=== PATIENT | male | born 1995 | race American Indian/Alaskan Native ===

== ENCOUNTER 2016-08-24 00:49 | Observation (INO) | payer MEDICAID ==
[2016-08-24] MEDS ORDERED: Sodium Chloride 0.9% 1,000 ML IV STA (01:02)
--- NOTE | 2016-08-24 01:29 | ED PDOC ---
HPI: Psych/Substance Abuse Time Seen by Provider: 08/24/16 00:59 Chief Complaint (Nursing): Alcohol Ingestion Chief Complaint (Provider): ETOH ED Caveat: Intoxicated History Per: Patient History/Exam Limitations: intoxication (Alcohol Intoxication) Onset/Duration Of Symptoms: Hrs Current Symptoms Are (Timing): Still Present Modifying Factor(s): Alcohol Additional Complaint(s): Nara Thakkar, a 20 year old male, was found in [address] and is brought into the ED by ambulance for public intoxication. History is limited due to patient's intoxicated state. Patient is observed to have unsteady gait and is vomiting in ED. Past Medical History Reviewed: Historical Data, Nursing Documentation, Vital Signs Vital Signs: Last Vital Signs Temp 97.7 F 08/24/16 00:57 Pulse 107 H 08/24/16 00:57 Resp 18 08/24/16 00:57 BP 139/78 08/24/16 00:57 Pulse Ox 97 08/24/16 00:57 - Medical History PMH: No Chronic Diseases - Family History Family History: States: Unknown Family Hx - Allergies Allergies/Adverse Reactions: Allergies Allergy/AdvReac Type Severity Reaction Status Date / Time No Known Allergies Allergy Verified 08/24/16 00:57 Review of Systems Review Of Systems: ROS cannot be obtained secondary to pt's inabilty to answer questions. (Unable history to obtain due to patient's state of intoxication.) Physical Exam - Reviewed Nursing Documentation Reviewed: Yes Vital Signs Reviewed: Yes - Physical Exam Appears: Positive for: Non-toxic, No Acute Distress Head Exam: Positive for: ATRAUMATIC, NORMOCEPHALIC Eye Exam: Positive for: Normal appearance, EOMI, PERRL Cardiovascular/Chest: Positive for: Regular Rate, Rhythm, Chest Non Tender. Negative for: Tachycardia Respiratory: Positive for: Normal Breath Sounds. Negative for: Wheezing, Respiratory Distress Gastrointestinal/Abdominal: Positive for: Normal Exam, Bowel Sounds, Soft. Negative for: Tenderness, Guarding, Rebound Neurologic/Psych: Positive for: Mood/Affect (Not alert but arousable;Obtunded). Negative for: Alert, Oriented - Laboratory Results Result Diagrams: 08/24/16 01:24 08/24/16 01:24 - ECG O2 Sat by Pulse Oximetry: 97 (RA) Pulse Ox Interpretation: Normal Medical Decision Making Medical Decision Makin Initial Impression: 20 year old male presenting with alcohol intoxication Initial Plan: * Alcohol serum * Comp Metabolic Panel * CBC * NS 1000ml IV 1000mls/hr * Zofran mg IV * Admit [id number] * Reevaluation \ Scribe Attestation Documented by Sally Isaac acting as a scribe for Suzanne Booker MD. Provider Attestation All medical record entries made by the Scribe were at my direction and personally dictated by me. I have reviewed the chart and agree that the record accurately reflects my personal performance of the history, physical exam, medical decision making, and the department course for this patient. I have also personally directed, reviewed, and agree with the discharge instructions and disposition. ED OBSERVATION Date of observation admission: 08/24/16 Time of observation admission: 01:24 - Observation admission statement Patient is being placed in observation because:: Pending sobriety. - Progress Note Progress Note: 08/24/16 03:12 Patient's condition is unchanged but patient is stable. 05:15 Patient has mildly improved and at this time is stable and sleeping. 6.50 Alert and awake. Ambulatory with steady gait. Scribe Attestation Documented by Sally Isaac acting as a scribe for Suzanne Booker MD. Provider Attestation All medical record entries made by the Scribe were at my direction and personally dictated by me. I have reviewed the chart and agree that the record accurately reflects my personal performance of the history, physical exam, medical decision making, and the department course for this patient. I have also personally directed, reviewed, and agree with the discharge instructions and disposition. Disposition - Clinical Impression Clinical Impression: Alcohol abuse with intoxication - Patient ED Disposition Is Patient to be Admitted: No Doctor Will See Patient In The: Office Counseled Patient/Family Regarding: Studies Performed, Diagnosis, Need For Followup - Disposition Disposition: Routine/Home Disposition Time: 06:52 Condition: GOOD
[2016-08-24 01:39] LABS: BASO % 0.6 % (0.0-2.0); EOS # 0.1 K/uL (0.0-0.7); EOS % 0.8 % (0.0-4.0); HEMATOCRIT 43.4 % (35.0-51.0); LYMPH # 5.2 K/uL (1.0-4.3); LYMPH % 61.1 % (20.0-40.0); MEAN CELL VOLUME 89.1 fl (80.0-94.0); MEAN CORPUSCULAR HEMOGLOBIN 29.8 pg (27.0-31.0); MEAN CORPUSCULAR HGB CONC 33.4 g/dL (33.0-37.0); MEAN PLATELET VOLUME 7.9 fl (7.2-11.7); MONO # 0.5 K/uL (0.0-0.8); MONO % 5.9 % (0.0-10.0); NEUT # 2.7 K/uL (1.8-7.0); NEUT % 31.6 % (50.0-75.0); NRBC % 0.2 % (0.0-0.0); PLATELET COUNT 222 K/uL (130-400); WHITE BLOOD COUNT 8.5 K/uL (4.8-10.8)
[2016-08-24 01:47] LABS: CHLORIDE 105 mmol/L (98-107)
[2016-08-24 01:48] LABS: POTASSIUM 3.6 MMOL/L (3.6-5.0); SODIUM 143 mmol/l (132-148)
[2016-08-24 01:50] LABS: ALB/GLOB RATIO 1.4 (1.0-2.1); ALKALINE PHOSPHATASE 52 U/L (38-126); ALT/SGPT 29 U/L (21-72); AST/SGOT 29 U/L (17-59); BILIRUBIN,TOTAL 0.4 mg/dl (0.2-1.3); BLOOD UREA NITROGEN 14 mg/dl (9-20); CARBON DIOXIDE 22 mmol/L (22-30); GFR AFRICAN-AMERICAN > 60; GLUCOSE,RANDOM 94 mg/dL (75-110); TOTAL PROTEIN 8.3 G/DL (6.3-8.2)
[2016-08-24 01:51] LABS: ALCOHOL SERUM 289 mg/dl (0-10)
[2016-08-24 03:38] VITALS: RESP 16
[2016-08-24 05:16] VITALS: BP 124/64; PULSE 80; TEMP 97.8; O2SAT 97
[2016-08-24 07:35] LABS: EOSINOPHIL 1 % (0-7); NEUTROPHIL 30 % (42-75); REACTIVE LYMPHOCYTES 17 % (0-0); TOTAL CELLS COUNTED 100
== END 2016-08-24 07:15 | disposition home or self-care (01) ==
LOC: H.ER 00:49 → H.EROBSV 01:24
PROVIDERS: ADMIT Emergency Medicine; ATTEND Emergency Medicine
DX: F10.129 Alcohol abuse with intoxication, unspecified (principal); Y90.8 Blood alcohol level of 240 mg/100 ml or more